=== PATIENT | female | born 1995 | race African-American/Black ===

== ENCOUNTER 2016-12-28 08:15 | Emergency (ER) | payer MEDICAID ==
[~2016-12-28] VITALS: Ht 167.6 cm; Wt 80.0 kg
[2016-12-28] MEDS ORDERED: LORAZEPAM 0.5MG TABLET PO ONE (09:45)
[2016-12-28] MEDS ORDERED: IBUPROFEN 800MG TABLET PO ONE (09:45)
[2016-12-28 10:44] VITALS: BP 125/71
== END 2016-12-28 10:47 | disposition home or self-care (01) ==
LOC: ER 08:21
DX: M54.5 Low back pain (principal); Z98.890 Other specified postprocedural states; V43.52XA Car driver injured in collision with other type car in traffic accident, initial encounter; Y93.89 Activity, other specified; Y92.488 Other paved roadways as the place of occurrence of the external cause
CPT/HCPCS: 72100; 81025; 99284; Z7610

== ENCOUNTER 2017-03-03 09:07 | Emergency (ER) | payer SELFPAY ==
[~2017-03-03] VITALS: Ht 167.6 cm; Wt 82.0 kg
[2017-03-03 11:00] VITALS: BP 123/61
[2017-03-03 11:59] LABS: CLARITY URINE CLEAR (CLEAR); COLOR URINE YELLOW (YELLOW); KETONES URINE NEGATIVE (NEGATIVE); LEUKOCYTE ESTERASE URINE 1+ (NEGATIVE); NITRITE URINE NEGATIVE (NEGATIVE); OCCULT BLOOD URINE NEGATIVE (NEGATIVE); PH URINE 6.5 (4.5-8.0); PROTEIN URINE NEGATIVE (NEGATIVE); SPECIFIC GRAVITY URINE 1.011 (1.005-1.030); UROBILINOGEN URINE 0.2 E.U./dL (0.2-1.0)
[2017-03-03] MEDS ORDERED: AZITHROMYCIN 500 MG TABLET PO ONE (12:00)
[2017-03-03] MEDS ORDERED: CEFTRIAXONE SODIUM 250 MG/VIAL IM ONE (12:00)
[2017-03-03] MEDS ORDERED: LIDOCAINE HCL/EPINEPHRINE 1%-EPI 1:100,000 20 ML VIAL INFIL ONE (14:00)
== END 2017-03-03 14:44 | disposition home or self-care (01) ==
LOC: ER 09:25
DX: N75.0 Cyst of Bartholin's gland (principal); N39.0 Urinary tract infection, site not specified; F12.10 Cannabis abuse, uncomplicated; Z98.890 Other specified postprocedural states
CPT/HCPCS: 56420; 81001; 87077; 87086; 87186; 96372; 99284; J0696; J3490; Z7610

== ENCOUNTER 2017-03-05 06:01 | Emergency (ER) | payer MEDICAID ==
[~2017-03-05] VITALS: Ht 167.6 cm; Wt 76.0 kg
[2017-03-05 10:30] VITALS: BP 120/80
== END 2017-03-05 10:15 | disposition home or self-care (01) ==
LOC: ER 06:01
DX: Z48.817 Encounter for surgical aftercare following surgery on the skin and subcutaneous tissue (principal); F12.10 Cannabis abuse, uncomplicated
CPT/HCPCS: 99281; Z7610

== ENCOUNTER 2021-12-12 11:34 | Emergency (ER) | payer MEDICAID ==
[~2021-12-12] VITALS: Ht 165.1 cm; Wt 75.0 kg
[2021-12-12] MEDS ORDERED: BACITRACIN ZINC OINT UDPKT TOP ONE (12:15)
[2021-12-12] MEDS ORDERED: HYDROCODONE/ACETAMINOPHEN 5/325MG TABLET PO ONE (12:15)
[2021-12-12] MEDS ORDERED: LIDOCAINE HCL/EPINEPHRINE 1%-EPI 1:100,000 20 ML VIAL INFIL ONE (12:15)
[2021-12-12] MEDS ORDERED: LIDOCAINE HCL/EPINEPHRINE 1%-EPI 1:100,000 10 ML VIAL INFIL SCH (12:30)
[2021-12-12] MEDS ORDERED: IBUP-2029 MT (13:52)
[2021-12-12 14:14] VITALS: BP 124/76
== END 2021-12-12 14:19 | disposition home or self-care (01) ==
LOC: ER 11:34
DX: S51.812A Laceration without foreign body of left forearm, initial encounter (principal); Z98.890 Other specified postprocedural states; Y04.0XXA Assault by unarmed brawl or fight, initial encounter; Y93.89 Activity, other specified; Y92.89 Other specified places as the place of occurrence of the external cause; Y99.8 Other external cause status
CPT/HCPCS: 12005; 81025; 99282; J3490; Z7610

== ENCOUNTER 2021-12-13 01:02 | Emergency (ER) | payer MEDICAID ==
[~2021-12-13] VITALS: Ht 170.2 cm; Wt 74.0 kg
[~2021-12-13 01:02] MED LIST: IBUP-2029 MT
[2021-12-13] MEDS ORDERED: IBUPROFEN 600MG TABLET PO ONE (02:00)
[2021-12-13] MEDS ORDERED: TETANUS, DIPHTHERIA, PERTUSSIS VAC/PF 0.5ML (>10YR OLD) IM ONE (02:00)
[2021-12-13 02:23] VITALS: BP 124/78
== END 2021-12-13 02:10 | disposition home or self-care (01) ==
LOC: ER 01:02
DX: Z23 Encounter for immunization (principal)
CPT/HCPCS: 90471; 90715; 99283

== ENCOUNTER 2021-12-22 01:12 | Emergency (ER) | payer MEDICAID ==
[~2021-12-22] VITALS: Ht 170.2 cm; Wt 76.5 kg
[2021-12-22] MEDS ORDERED: CEPH500C2 MT (02:30)
[2021-12-22 02:40] VITALS: BP 122/65
== END 2021-12-22 02:49 | disposition home or self-care (01) ==
LOC: ER 01:12
DX: N76.0 Acute vaginitis (principal); F12.10 Cannabis abuse, uncomplicated
CPT/HCPCS: 81025; 99283

== ENCOUNTER 2022-01-03 20:43 | Emergency (ER) | payer MEDICAID ==
[~2022-01-03] VITALS: Ht 167.6 cm; Wt 75.0 kg
[~2022-01-03 20:43] MED LIST changes: +CEPH500C2 MT
[2022-01-03 21:13] VITALS: BP 102/70
[2022-01-03] MEDS ORDERED: LIDOCAINE HCL/PF 1% 10 MG/ML 5ML VIAL INFIL ONE (23:30)
== END 2022-01-03 23:56 | disposition home or self-care (01) ==
LOC: ER 21:06
DX: Z48.02 Encounter for removal of sutures (principal)
CPT/HCPCS: 99281; J3490

== ENCOUNTER 2022-01-30 19:50 | Emergency (ER) | payer MEDICAID ==
[~2022-01-30] VITALS: Ht 167.6 cm; Wt 72.7 kg
[2022-01-30 20:47] VITALS: BP 135/84
[2022-01-30] MEDS ORDERED: FLUC150T46 MT (22:37)
== END 2022-01-31 00:40 | disposition home or self-care (01) ==
LOC: ER 19:50
DX: N76.0 Acute vaginitis (principal); F12.10 Cannabis abuse, uncomplicated
CPT/HCPCS: 99281